=== PATIENT | male | born 1940 | race Caucasian/White ===

== ENCOUNTER 2016-07-07 07:25 | Day surgery (SDC) | payer MEDICARE, BC ==
[2016-07-07] MEDS ORDERED: Sodium Chloride 0.9% 10 ML Syringe FLUSH PRN (07:30)
[2016-07-07] MEDS ORDERED: Lactated Ringers 1,000 ML IV SCH (07:30)
[2016-07-07] MEDS ORDERED: Lidocaine 2% 100 MG/5 ML Syringe IVPUSH ONE (09:00)
[2016-07-07] MEDS ORDERED: fentaNYL 100 MCG/2 ML SDV IV ONE (09:00)
[2016-07-07] MEDS ORDERED: Propofol 200 MG/20 ML SDV IV ONE (09:00)
[2016-07-07] MEDS ORDERED: Midazolam 1 MG/ML 2 ML SDV IV ONE (09:00)
--- NOTE | 2016-07-07 09:39 | PCM.OPNOTE ---
- General Post-Op/Procedure Note Date of Surgery/Procedure: 07/07/16 Operative Procedure(s): egd with bx. c scope with bx Findings: gastritis gastric polyps cecal polyp Pre Op Diagnosis: heme + stools. hx of gerd Post-Op Diagnosis: gastritis. gastric polyps. cecal polyp Anesthesia Technique: MAC (s) Primary Surgeon: González Sharma Anesthesia Provider: Di Avila Pathology: gastric mucosa gastric polyps cecal polyp Complications: None Condition: Good Free Text/Narrative:: see dication
[2016-07-07 11:22] VITALS: BP 131/72
--- NOTE | 2016-07-07 14:56 | OR ---
DATE OF OPERATION: 07/07/2016 SURGEON: González Sharma MD PROCEDURE PERFORMED: EGD with cold forceps biopsy and colonoscopy. PREOPERATIVE DIAGNOSES: Heme-positive stools and low-grade anemia. POSTOPERATIVE DIAGNOSES: Gastritis with fundic gland hyperplasia and cecal polyp. INDICATIONS FOR PROCEDURE: This is a 76-year-old white male who was referred with the above-mentioned complaints. He was offered and accepted EGD and colonoscope. DESCRIPTION OF PROCEDURE: After an excellent IV sedation was administered, the bite block was inserted. The flexible endoscope was passed without difficulty down the patient's esophagus and into the stomach. The stomach was insufflated, and the scope was passed through the pylorus to the second portion of the duodenum and slowly withdrawn. The following findings were noted. Duodenum was unremarkable. Stomach demonstrated some mild gastritis and some fundic gland hyperplasia. 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 Esophagus was unremarkable. The stomach was deflated and scope was removed. Our attention was turned to the colon. Digital rectal exam was performed. No marked abnormality was noted. Flexible colonoscope was inserted and advanced to the cecum without difficulty. The following findings were noted. Ascending colon, a small 2 mm polypoid appearing lesion, biopsied with cold biopsy forceps in the cecum. Transverse colon, unremarkable. Descending colon, unremarkable. Sigmoid and rectum, unremarkable. Colon was deflated and scope was removed. The patient tolerated the procedure well and was taken to recovery room in good condition. /[id number] /[id number]
== END 2016-07-07 10:43 | disposition home or self-care (01) ==
LOC: FB.SDS 07:25
PROVIDERS: ATTEND Surgery
DX: K29.50 Unspecified chronic gastritis without bleeding (principal); K21.9 Gastro-esophageal reflux disease without esophagitis; K92.1 Melena; I12.9 Hypertensive chronic kidney disease with stage 1 through stage 4 chronic kidney disease, or unspecified chronic kidney disease; N18.3 Chronic kidney disease, stage 3 (moderate); J45.909 Unspecified asthma, uncomplicated; D64.9 Anemia, unspecified; Z79.82 Long term (current) use of aspirin; Z79.899 Other long term (current) drug therapy; Z88.0 Allergy status to penicillin; Z88.8 Allergy status to other drugs, medicaments and biological substances; Z96.653 Presence of artificial knee joint, bilateral; Z90.49 Acquired absence of other specified parts of digestive tract; Z98.890 Other specified postprocedural states; Z96.643 Presence of artificial hip joint, bilateral
CPT/HCPCS: 00902; 43239; 45380; 88305; 88342; J2250; J2704; J3010; J7120

== ENCOUNTER 2022-08-01 06:52 | Day surgery (SDC) | payer MEDICARE, BC ==
[2022-08-01] MEDS ORDERED: Propofol 200 MG/20 ML SDV IV ONE (06:53)
[2022-08-01] MEDS ORDERED: Lidocaine 2% 5 ML SDV IV ONE (06:53)
[2022-08-01] MEDS ORDERED: Lactated Ringers 1,000 ML IV SCH (07:00)
[2022-08-01] MEDS ORDERED: Sodium Chloride 0.9% 10 ML Syringe FLUSH PRN (07:00)
[2022-08-01 07:55] VITALS: BP 163/73; PULSE 53
[2022-08-01] MEDS ORDERED: Simethicone Drops 40 MG/0.6 ML 30 ML Bottle PO ONE (08:38)
== END 2022-08-01 10:01 | disposition home or self-care (01) ==
LOC: FB.SDS 06:52
PROVIDERS: ATTEND Surgery
DX: Z12.11 Encounter for screening for malignant neoplasm of colon (principal); I10 Essential (primary) hypertension; J45.909 Unspecified asthma, uncomplicated; K40.90 Unilateral inguinal hernia, without obstruction or gangrene, not specified as recurrent; Z86.010 Personal history of colon polyps; Z88.0 Allergy status to penicillin; Z79.899 Other long term (current) drug therapy; Z88.8 Allergy status to other drugs, medicaments and biological substances; Z98.890 Other specified postprocedural states; Z90.49 Acquired absence of other specified parts of digestive tract
CPT/HCPCS: 00811; A9270; G0105; J2704; J7120